=== PATIENT | female | born 1995 | race Caucasian/White ===

== ENCOUNTER 2017-09-01 16:58 | Observation (INO) | payer BC ==
--- NOTE | 2017-09-01 18:39 | RAD ---
Indication: Head injury with amnesia. CT of the brain was performed without IV contrast. Ventricular structures are midline. No midline shift is noted. The extra-axial spaces are unremarkable there is no evidence of intracranial mass or hemorrhage. No other high or low density lesions are identified. Mastoid air cells and paranasal sinuses are otherwise unremarkable. IMPRESSION: No intracranial mass or hemorrhage is noted.
[2017-09-01 19:25] LABS: ABS Basophils 0.1 10^3/ul (0-0.2); ABS Eosinophils 0.1 10^3/ul (0-0.6); ABS Lymphocytes 2.2 10^3/ul (1.0-4.8); ABS Monocytes 0.4 10^3/ul (0-0.8); ABS Neutrophils 6.6 10^3/ul (1.5-7.7); ABS Nucleated RBC 0 10^3/ul; Eosinophil % 1.6 % (0-6); Hematocrit 38 % (35-47); Hemoglobin 12.3 g/dl (12.0-16.0); Lymphocyte % 23.4 % (25-47); Mean Corpuscular HGB Conc 32 g/dl (31-36); Mean Corpuscular Hemoglobin 26 pg (27-31); Mean Corpuscular Volume 81 fL (80-97); Mean Platelet Volume 7.9 um3 (7.4-10.4); Nucleated Red Blood Cells % 0; Platelet Count 294 10^3/ul (150-450); Red Blood Count 4.73 10^6/ul (4.00-5.40); Red Cell Distribution Width 14 % (10.5-15); White Blood Count 9.5 10^3/ul (3.5-10.8)
[2017-09-01 19:36] LABS: EGFR Non-African American 97.9 (>60)
[2017-09-01] MEDS ORDERED: Ondansetron INJ* 2 MG/ML VIAL IV PRN (20:13)
[2017-09-01] MEDS ORDERED: Acetaminophen TAB* 325 MG PO PRN (20:13)
--- NOTE | 2017-09-01 20:15 | ED ---
Tone Ureña Natalie, scribed for Jeff Hernandez MD on 09/01/17 at 1737 . Head Injury - HPI Summary HPI Summary: The patient is a 22 y/o M presenting to [facility] c/o falling on the back of her head approximately an hour before exam. The pt was playing slip and slide kickball when she fell. She doesn't remember falling or coming to the ED, but she remembers going to the house she was at to play kickball. She states she also doesn't remember who drove her to the ED, but she thinks she remembers one of her friends was in the car. She also reports that she is slightly confused. There is pain only in the occipital region of her head. She has been using ice to relieve the pain. She denies neck pain, back pain, and dizziness. The only medication she takes is a daily oral contraceptive. - History Of Current Complaint Chief Complaint: EDHeadInjury Stated Complaint: FELL/HIT HEAD Time Seen by Provider: 09/01/17 17:08 Hx Obtained From: Patient Mechanism Of Injury: Fall From A Standing Position Onset/Duration: Started Minutes Ago, Still Present Onset of Pain: Immediate Severity Currently: Mild Severity Initially: Moderate Pain Intensity: 0 Pain Scale Used: 0-10 Numeric Location of Head Injury: Occipital Character: Other: - sore Alleviating Factor(s): Ice Associated Signs And Symptoms: Negative - neck pain, back pain, dizziness, swelling to head, LOC Duration Unknown, Confusion, Memory Loss - Allergies/Home Medications Allergies/Adverse Reactions: Allergies Allergy/AdvReac Type Severity Reaction Status Date / Time No Known Allergies Allergy Unknown Verified 09/01/17 17:16 Reaction Details PMH/Surg Hx/FS Hx/Imm Hx Endocrine/Hematology History: Denies: Hx Diabetes Cardiovascular History: Denies: Hx Congenital Heart Disease, Hx Hypertension Opthamlomology History: Denies: Hx Legally Blind EENT History: Denies: Hx Deafness Infectious Disease History: No Infectious Disease History: Denies: Traveled Outside the [place] in Last 30 Days - Family History Known Family History: Negative: Blood Disorder - Social History Alcohol Use: Occasionally Substance Use Type: Reports: None Smoking Status (MU): Never Smoked Tobacco Review of Systems Constitutional: Negative - dizziness Musculoskeletal: Negative - swelling to head, neck pain, back pain Positive: Other - pain in occipital region of head Neurological: Other - LOC, confusion, memory loss All Other Systems Reviewed And Are Negative: Yes Physical Exam - Summary Physical Exam Summary: Appearance: Well appearing, no pain distress Skin: warm, dry, reflects adequate perfusion Head/face: normal, no swelling to the head Eyes: EOMI, LORENA ENT: normal Neck: supple, non-tender Respiratory: CTA, breath sounds present Cardiovascular: RRR, pulses symmetrical Abdomen: non-tender, soft Bowel Sounds: present Musculoskeletal: normal, strength/ROM intact Neuro: normal, sensory motor intact, A&Ox3, GCS: 14 Triage Information Reviewed: Yes Vital Signs On Initial Exam: Initial Vitals Temp Pulse Resp BP Pulse Ox 98.8 F 48 16 133/79 96 09/01/17 17:02 09/01/17 17:02 09/01/17 17:02 09/01/17 17:02 09/01/17 17:02 Vital Signs Reviewed: Yes Diagnostics - Vital Signs Vital Signs Temp Pulse Resp BP Pulse Ox 09/01/17 17:02 98.8 F 48 16 133/79 96 - Laboratory Lab Results: Lab Results 09/01/17 09/01/17 Range/Units 19:08 19:08 WBC 9.5 (3.5-10.8) 10^3/ul RBC 4.73 (4.00-5.40) 10^6/ul Hgb 12.3 (12.0-16.0) g/dl Hct 38 (35-47) % MCV 81 (80-97) fL MCH 26 L (27-31) pg MCHC 32 (31-36) g/dl RDW 14 (10.5-15) % Plt Count 294 (150-450) 10^3/ul MPV 7.9 (7.4-10.4) um3 Neut % (Auto) 69.8 (38-83) % Lymph % (Auto) 23.4 L (25-47) % [place] % (Auto) 4.6 (0-7) % Eos % (Auto) 1.6 (0-6) % Baso % (Auto) 0.6 (0-2) % Absolute Neuts (auto) 6.6 (1.5-7.7) 10^3/ul Absolute Lymphs (auto) 2.2 (1.0-4.8) 10^3/ul Absolute Monos (auto) 0.4 (0-0.8) 10^3/ul Absolute Eos (auto) 0.1 (0-0.6) 10^3/ul Absolute Basos (auto) 0.1 (0-0.2) 10^3/ul Absolute Nucleated RBC 0 10^3/ul Nucleated RBC % 0 Sodium 138 (135-145) mmol/L Potassium 4.0 (3.5-5.0) mmol/L Chloride 105 (101-111) mmol/L Carbon Dioxide 26 (22-32) mmol/L Anion Gap 7 (2-11) mmol/L BUN 14 (6-24) mg/dL Creatinine 0.73 (0.51-0.95) mg/dL Est GFR ( Amer) 118.5 (>60) Est GFR (Non-Af Amer) 97.9 (>60) BUN/Creatinine Ratio 19.2 (8-20) Glucose 101 H (70-100) mg/dL Calcium 9.2 (8.6-10.3) mg/dL Beta HCG, Quant < 0.60 mIU/mL Result Diagrams: 09/01/17 19:08 09/01/17 19:08 Lab Statement: Any lab studies that have been ordered have been reviewed, and results considered in the medical decision making process. - CT Brain CT CT Interpretation: No Acute Changes - No intracranial mass or hemorrhage is noted. ED physician has reviewed this report. CT Interpretation Completed By: Radiologist Re-Evaluation - Re-Evaluation First Eval Re-Evaluation Time: 19:00 Change: Worse Comment: I spoke with the pt about Brain CT results. She did not remember who I was. She will be considered for admission to [facility]. Head Injury Course/Dx Course Of Treatment: Patient is alert and comfortable but with significant retrograde and short-term memory loss. This persisted through her stay. She was unable to recall who I was despite multiple visits and explanations. CT scan is negative. She will require observation for further. Hospitalist contacted and evaluated the patient and will admit. - Diagnoses Differential Diagnosis/HQI/PQRI: Concussion Without LOC, Intracranial Bleed Provider Diagnoses: Concussion, Amnesia - Physician Notifications Discussed Care Of Patient With: Ta Waller Time Discussed With Above Provider: 19:11 - Dr. Waller accepts the pt for admittance to [facility]. Instructed by Provider To: Admit As Inpatient Discharge - Sign-Out/Discharge Documenting (check all that apply): Discharge/Admit/Transfer - Pt will be admitted to [facility] under the care of Dr. Waller. - Discharge Plan Condition: Fair Disposition: ADMITTED TO [facility] Prescriptions: Ondansetron TAB* [Zofran 4 MG Tab*] 4 mg PO Q6H PRN #10 tab PRN Reason: Nausea Patient Education Materials: Concussion (ED), Post Concussion Syndrome (ED) Referrals: [facility] [Outside] Izabella Holt [Manufacturing Leader] - Additional Instructions: Return with severe headaches, vomiting, weakness, worse or other concerns. Avoid physical activity for 1 week following the last symptom your encounter. Quiet, darkened rooms. Avoid noisy environments, bright lights and fine print reading or electronic devices. - Billing Disposition and Condition Condition: FAIR Disposition: Admitted to [facility] The documentation as recorded by the Tone garcía Natalie accurately reflects the service I personally performed and the decisions made by , Jeff Hernandez MD.
--- NOTE | 2017-09-01 21:48 | HP ---
ADMISSION HISTORY AND PHYSICAL: DATE OF ADMISSION: 09/01/17 PRIMARY CARE PROVIDER: None. HEALTHCARE PROXY: Her mother, Coni. CODE STATUS: Full. SOURCE OF INFORMATION: History obtained from the patient as well as 3 friends in the room. RELIABILITY: Very good. CHIEF COMPLAINT: Fall with head strike. HISTORY OF PRESENT ILLNESS: This is a 22-year-old female, no past medical history, currently a vet student at [employer], who had been in her usual state of health as best as can be relayed by her friends, around 3 p.m. today was playing slip and slide kickball when she suffered a fall with strike of her occiput. After the fall, there was no noted loss of consciousness, but she was noted to be stunned and somewhat confused by her friends. She noted sensation of feeling tingly to her friends as well as she had a blurry spot in her vision that resolved after approximately 5 minutes. She can give no additional details except for what was relayed to her friends at that time. After about 15 minutes of sitting with her friends, they noticed that she had difficulty remembering anything leading up to that moment was significant retrograde amnesia and they sought care in the emergency room. In the emergency room, retrograde amnesia as well as anterograde amnesia was identified without other neurological findings as detailed below and the hospitalist service was consulted for admission after traumatic brain injury. PAST MEDICAL HISTORY: [place] teeth extraction. MEDICATIONS: Oral contraceptive pill. ALLERGIES: None. SOCIAL HISTORY: Does not drink any amount weekly, although when she does drink alcohol, she may have 3 beverages at time. No history of tobacco. No illicit. Currently at the [employer] as part of the [employer]. FAMILY HISTORY: No past medical history of strokes or seizures. Does have a history of CAD in her grandfather. REVIEW OF SYSTEMS: Prior to injury unclear although had been reported in her usual state of health by her friends who had been with her throughout the day. Currently, no headache, nausea, vomiting, dizziness, blurred double vision, sensitivity to light, noise, ringing in her ears, poor concentration. She does not feel dull or not sharp. She does not feel fatigue, sad, or irritable. PHYSICAL EXAMINATION GENERAL: Well appearing female, sitting up, interactive, pleasant, no apparent distress. VITALS: In the emergency room, 123/81, heart rate is 90, respiratory rate 16, T - max 98.8. HEENT: Oropharynx is clear. She has moist mucous membranes. Sclerae are anicteric. LUNGS: Clear to auscultation. HEART: She has regular rate and rhythm. ABDOMEN: Soft, nontender, nondistended. EXTREMITIES: Warm and well perfused without clubbing, cyanosis, or edema. She has 5/5 strength in all extremities. Equal and strong handgrip bilaterally. No pronator drift. NEUROLOGIC: She is alert and oriented x4 to the person, place, hospital, year, and month. Her cranial nerves II through XII are intact. No nystagmus. Sensation is intact. Visual carlos are intact to confrontation. Finger-nose- finger intact. She has no dysdiadochokinesia. Gait was not assessed. She is able to spell world backwards and perform serial sevens 7 times. She is able to recall 3 words on immediate recall, but 0 at 3 minutes. In fact, she cannot remember the 3 words were prompted for to be remembered. She can follow 2-step commands. IMAGING: Data reviewed. CT of her head, noncontrast, impression: No intracranial mass or hemorrhage is noted. ASSESSMENT AND PLAN: This is a 22-year-old female, no past medical history, presenting to the hospital with retrograde and anterograde amnesia after head strike. 1. Traumatic brain injury/concussion. No CT findings for abnormalities on evaluation; however, currently, without structured environment for continued monitoring overnight. I think she warrants continued observation in the hospital. She will be placed on neuro checks as well as seizure precautions. Zofran for nausea if it develops and Tylenol for headache if it develops. I will discuss with Neurology need for formal consultation. She will need a PCP and a followup with Neurology upon discharge, which was relayed to her; however , I understand she will not have any memory of this going forward. 2. DVT prophylaxis. Ambulate ad mattie, low risk. 3. Full code. I will call and discuss care as indicated above with her mother at [phone] now. [id number]/CPS #: [id number] [facility]
[2017-09-02 12:01] VITALS: BP 110/64
--- NOTE | 2017-09-02 19:24 | DS ---
DISCHARGE SUMMARY: DATE OF ADMISSION: 09/01/17 DATE OF DISCHARGE: 09/02/17 HOSPITAL STATUS: Observation. PROVIDER: Pee Alba NP ATTENDING PHYSICIAN: Dr. Lopes * (report dictated by Pee Alba NP). PRIMARY CARE PROVIDER: The patient is followed by Internal Medicine [facility]. The patient is not able to recall her primary care provider at [facility] and I am unable to get through the [facility] main line. We will continue to try to reach [facility] and CC the note after dictation. DISCHARGE DIAGNOSIS: Concussion. SECONDARY DIAGNOSIS: None. HISTORY OF PRESENT ILLNESS AND HOSPITAL: Please see history and physical by Dr. 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 She denied losing consciousness. She was seen in the emergency department and admitted on observation status. She underwent a CT scan of the brain, which showed no abnormalities. Overnight, she has done well and currently this morning she feels that she is at her baseline. She continues to not be able to remember the events surrounding yesterday but states that currently she is feeling at her baseline and would like to be discharged home. Her parents, both her mother and father drove up from [place] and are at the bedside. The patient denies any headaches, vision changes, no nausea or vomiting. Denies any numbness, weakness, tingling. She reports good appetite. I discussed with neurologist, Dr. Whiteside over the phone and the patient would not need to follow up with Neurology unless she had postconcussive syndrome, which could present as chronic headaches. Discharge process discussed with the patient as well as the parents. Recommendation for rest especially in the next week with only allowing approximately 2 hours of schoolwork a day or less if the patient starts to feel headache or a brain fog. Again, strongly emphasized rest over the next week. Discussed worsening signs and symptoms and when to return to the emergency department. The patient is stable for discharge to home. REVIEW OF SYSTEMS: A 14-point review of systems was performed. All the pertinent positives and negatives are mentioned in the discharge summary. PHYSICAL EXAMINATION: Vital Signs: Temperature 98.4, heart rate 83, respirations 18, O2 sat 100% on room air, blood pressure of 110/64. Appearance : Well-developed 22-year-old female sitting up on the bed, alert and oriented x3, in no acute distress. HEENT: Head is normocephalic, atraumatic. Pupils are equal and reactive to light. Oropharynx is clear. Moist mucous membranes. Neck is supple. Cardiac: S1, S2. Regular rate and rhythm. No murmur, rub, or gallop appreciated. No lower extremity edema noted. Lungs: Clear to auscultation bilaterally. Good aeration throughout. Abdomen: Soft, nontender , nondistended. Normal bowel sounds throughout. Extremities: No clubbing, cyanosis, or edema noted. Neuro: Alert and oriented x3. Tongue is midline. No facial droop. [id number] test intact. No pronator drift. Strength is equal throughout. DISCHARGE PLAN: 1. Follow up with primary care provider at [facility] this week. This was discussed with the patient but I was having difficulty reaching [facility], which was tried multiple times and she is to call [facility] to schedule followup this week. Worsening signs and symptoms were discussed with her and when to return to the emergency department. 2. Continue rest for the next week or two, which especially in the first couple of days to weeks would be keeping work to less than 2 hours a day and resting as much as possible. I suggested abstaining from alcohol for at least the next week. We discussed postconcussive syndrome symptoms and when it would be appropriate for her to follow up with the neurologist. TIME SPENT: Approximately 60 minutes were spent on discharge. PEE ALBA, LEGAL MEDIATOR [id number]/[facility] #: [id number] MING
== END 2017-09-02 12:40 | disposition home or self-care (01) ==
LOC: ED 16:58 → MED 20:13
PROVIDERS: ADMIT Internal Medicine; ATTEND Internal Medicine
DX: S06.0X0A Concussion without loss of consciousness, initial encounter (principal); W19.XXXA Unspecified fall, initial encounter; Y93.79 Activity, other specified sports and athletics; Y92.9 Unspecified place or not applicable
CPT/HCPCS: 36415; 70450; 80048; 84702; 85025; 96374; 96375; 99283; G0378